=== PATIENT | male | born 1990 | race Caucasian/White ===

== ENCOUNTER 2017-04-22 23:39 | Inpatient (IN) | payer OTHER ==
[~2017-04-22] VITALS: Ht 175.3 cm; Wt 58.3 kg
[2017-04-22 23:44] VITALS: BP 136/89; PULSE 111; RESP 22; TEMP 97.8; O2SAT 98
[2017-04-22] MEDS ORDERED: SODIUM CHLOR 0.9% 1000 ML INJ 1,000 ML IV ONE (23:55)
[2017-04-22] MEDS ORDERED: HUMALOG SQ (23:57)
[2017-04-22] MEDS ORDERED: LEVEMIR SQ (23:57)
[2017-04-22] MEDS ORDERED: OMEP20TA93 PO (23:57)
[2017-04-23] VITALS (30 sets, daily range): BP systolic 87–127; BP diastolic 50–80; PULSE 95–124; RESP 0–31; TEMP 97.9–99.1; O2SAT 96–100
[2017-04-23] MEDS ORDERED: SODIUM CHLORIDE 0.9% FLUSH 10 ML FLUSH IVF PRN
[2017-04-23 00:08] LABS: BLOOD GAS VENOUS BASE EXCESS -16.5 mmol/L (-2-2); BLOOD GAS VENOUS HCO3 10 mmol/L (22-26); BLOOD GAS VENOUS O2 HGB SAT 80 % (70-76); BLOOD GAS VENOUS PCO2 27 mmHg (44-48); BLOOD GAS VENOUS PO2 52 mmHg (35-40); CRITICAL VALUE YES; TEMP CORR TO 98.6
[2017-04-23 00:09] LABS: FIO2 21 %; OXYGEN DEVICE ROOM AIR; STAT YES
[2017-04-23] MEDS ORDERED: ONDANSETRON HCL 4 MG/2 ML VIAL IV ONE (00:15)
[2017-04-23] MEDS ORDERED: SODIUM CHLOR 0.9% 1000 ML INJ 1,000 ML IV ONE (00:25)
--- NOTE | 2017-04-23 00:25 | PD ---
HPI Chief Complaint: Diabetic Time Seen by Provider: 23:48 Travel History International Travel<30 days: No Contact w/Intl Traveler<30days: No Traveled to known affect area: No History of Present Illness HPI 27-year-old male with type 1 diabetes presents to the emergency room complaining of nausea vomiting shortness of breath and high blood sugar. He takes Humalog and Levemir. He states he was feeling well until tonight. He started getting sick with nausea vomiting, as well as feeling some shortness of breath. No fevers or chills or chest or abdominal pain. No chest pain. He's been in DKA in the past. Been taking all of his medications regularly. History Past Medical History Narrative Medical Type 1 diabetes Social History Alcohol Use: No Tobacco Use: No Allergies-Medications (Allergen,Severity, Reaction): Coded Allergies: Penicillins (Verified Allergy, Unknown, 04/22/17) Reported Meds & Prescriptions Reported Meds & Active Scripts Active Reported Omeprazole 20 Mg Tab 20 Mg PO DAILY Humalog Inj (Insulin Human Lispro) 1,000 Unit/10 Ml Vial 2-12 Units SQ TIDAC Levemir Inj (Insulin Detemir) 1,000 unit/ 10 ML Vial 40 Units SQ HS Do not mix with any other Insulin. Review of Systems Except as stated in HPI: all other systems reviewed are Neg Physical Exam Narrative GENERAL: 27-year-old man, ill-appearing, retching, clammy. SKIN:: Clammy. HEAD: Atraumatic. Normocephalic. EYES: Pupils equal and round. No scleral icterus. No injection or drainage. ENT: No nasal bleeding or discharge. Mucous membranes pink and moist. NECK: Trachea midline. No JVD. CARDIOVASCULAR heart rates over rapid. No murmurs. RESPIRATORY: Moderate tachypnea with some deep Kussmaul breathing. GASTROINTESTINAL: Abdomen soft, non-tender, nondistended. Hepatic and splenic margins not palpable. MUSCULOSKELETAL: No obvious deformities. No edema. Decreased muscle bulk. NEURO: A little bit listless. Data Data Last Documented VS Vital Signs Date Time Temp Pulse Resp B/P (MAP) Pulse Ox O2 Delivery O2 Flow Rate FiO2 04/23/17 02:00 109 16 127/80 (96) 96 Room Air 04/22/17 23:44 97.8 Orders Orders Complete Blood Count With Diff (04/22/17:) Comprehensive Metabolic Panel (04/22/17:) Magnesium (Mg) (04/22/17:) Phosphorus (Po4) (04/22/17) Beta Hydroxybutyrate (Acetone) (04/22/17) Lactic Acid (04/22/17) Urinalysis - C+S If Indicated (04/22/17) Blood Gas Venous (Vbg) (04/22/17) Blood Glucose (04/22/17) Blood Glucose (04/23/17:55) Ecg Monitoring (04/22/17:) Iv Access Insert/Monitor (04/22/17) Oximetry (04/22/17) NPO (04/22/17:55) Sodium Chlor 0.9% 1000 Ml Inj (Ns 1000 M (04/22/17:55) Sodium Chlor 0.9% 1000 Ml Inj (Ns 1000 M (04/23/17 00:25) Sodium Chloride 0.9% Flush (Ns Flush) (04/23/17 00:00) Lipase (04/22/17:55) Ondansetron Inj (Zofran Inj) (04/23/17 00:15) Flight Engineer Instructor / Telemetry [id number] (04/23/17:23) ^ Insert Iv (04/23/17:23) Diet Npo (04/23/17 Breakfast) Sodium Chlor 0.9% 1000 Ml Inj (Ns 1000 M (04/23/17:23) Dext 5%-Nacl 0.9% 1000 Ml Inj (D5w-Ns 10 (04/23/17:23) Insulin Human Regular Inj (Novolin R Inj (04/23/17 01:30) Insulin Regular (Iv Infusion) (Novolin R (04/23/17:30) Potassium Chlor 40 Meq Premix (Kcl 40 Me (04/23/17 01:30) Potassium Chlor 40 Meq Premix (Kcl 40 Me (04/23/17 01:30) Potassium Chlor 20 Meq Premix (Kcl 20 Me (04/23/17:30) Potassium Chlor 20 Meq Premix (Kcl 20 Me (11/12/17 01:30) Potassium Chlor 20 Meq Premix (Kcl 20 Me (04/23/17 01:30) Potassium Chlor 20 Meq Premix (Kcl 20 Me (04/23/17 01:30) Potassium Chlor 20 Meq Premix (Kcl 20 Me (04/23/17 01:30) Potassium Chlor 20 Meq Premix (Kcl 20 Me (04/23/17 01:30) Sodium Bicarbonate 8.4% Inj (Sodium Bica (04/23/17:30) Sodium Bicarbonate 8.4% Inj (Sodium Bica (04/23/17 01:30) Sodium Phosphate Inj (Sodium Phosphate I (04/23/17 01:30) Hemoglobin (Hgb) A1c (04/23/17 01:23) Basic Metabolic Panel (Bmp) (04/23/17 06:23) Basic Metabolic Panel (Bmp) (04/23/17 12:23) Basic Metabolic Panel (Bmp) (04/23/17 18:23) Basic Metabolic Panel (Bmp) (04/24/17 00:23) Magnesium (Mg) (04/23/17 06:23) Magnesium (Mg) (04/23/17 12:23) Magnesium (Mg) (04/23/17 18:23) Magnesium (Mg) (04/24/17 00:23) Phosphorus (Po4) (04/23/17 06:23) Phosphorus (Po4) (04/23/17 12:23) Phosphorus (Po4) (04/23/17 18:23) Phosphorus (Po4) (04/24/17 00:23) Beta Hydroxybutyrate (Acetone) (04/23/17 12:23) Beta Hydroxybutyrate (Acetone) (04/24/17 00:23) Admit Order (Ed Use Only) (04/23/17 ) Labs Laboratory Tests Test 04/22/17 23:54 04/22/17 23:59 04/23/17 00:27 Blood Gas Puncture Site Blood Gas Patient Temperature 98.6 Venous Blood pH 7.20 Venous Blood Partial Pressure CO2 27 mmHg Venous Blood Partial Pressure O2 52 mmHg Venous Blood HCO3 10 mmol/L Venous Blood Oxygen Saturation 80 % Venous Blood Oxygen Content 17.0 Vol % Venous Blood Base Excess -16.5 mmol/L Oxygen Delivery Device ROOM AIR Blood Gas Inspired Oxygen 21 % White Blood Count 9.7 TH/MM3 Red Blood Count 5.02 MIL/MM3 Hemoglobin 14.9 GM/DL Hematocrit 45.3 % Mean Corpuscular Volume 90.4 FL Mean Corpuscular Hemoglobin 29.7 PG Mean Corpuscular Hemoglobin Concent 32.8 % Red Cell Distribution Width 11.8 % Platelet Count 267 TH/MM3 Mean Platelet Volume 9.9 FL Neutrophils (%) (Auto) 65.4 % Lymphocytes (%) (Auto) 27.0 % Monocytes (%) (Auto) 5.8 % Eosinophils (%) (Auto) 1.3 % Basophils (%) (Auto) 0.5 % Neutrophils # (Auto) 6.3 TH/MM3 Lymphocytes # (Auto) 2.6 TH/MM3 Monocytes # (Auto) 0.6 TH/MM3 Eosinophils # (Auto) 0.1 TH/MM3 Basophils # (Auto) 0.1 TH/MM3 CBC Comment DIFF FINAL Differential Comment Blood Urea Nitrogen 17 MG/DL Creatinine 0.97 MG/DL Random Glucose 484 MG/DL Total Protein 7.9 GM/DL Albumin 4.3 GM/DL Calcium Level 9.0 MG/DL Phosphorus Level 3.7 MG/DL Magnesium Level 1.9 MG/DL Alkaline Phosphatase 111 U/L Aspartate Amino Transf (AST/SGOT) 28 U/L Alanine Aminotransferase (ALT/SGPT) 27 U/L Total Bilirubin 0.6 MG/DL Sodium Level 133 MEQ/L Potassium Level 4.4 MEQ/L Chloride Level 99 MEQ/L Carbon Dioxide Level 12.4 MEQ/L Anion Gap 22 MEQ/L Estimat Glomerular Filtration Rate 92 ML/MIN Lactic Acid Level 2.4 mmol/L Lipase 69 U/L B-Hydroxybutyrate 7.61 MMOL/L Urine Color COLORLESS Urine Turbidity CLEAR Urine pH 5.0 Urine Specific [place] 1.023 Urine Protein NEG mg/dL Urine Glucose (UA) 1000 mg/dL Urine Ketones 150 mg/dL Urine Occult Blood NEG Urine Nitrite NEG Urine Bilirubin NEG Urine Urobilinogen LESS THAN 2.0 MG/DL Urine Leukocyte Esterase NEG Urine Mucus FEW /lpf Microscopic Urinalysis Comment CULT NOT INDICATED MDM Medical Decision Making Medical Screen Exam Complete: Yes Emergency Medical Condition: Yes Interpretation(s) My review of ABG: PH 7.2/26.6/51.8/10, base excess -16.5 LABS: CBC is unremarkable. CMP with hyperglycemia elevated anion gap acidosis Beta hydroxybutyrate 7.61 UA unremarkable Differential Diagnosis DKA, infection, dehydration, other Narrative Course Medical decision making INITIAL calls a 27-year-old man who presents emergency Department with nausea vomiting and elevated blood sugar. He appears to be in DKA clinically. IV fluid hydration was initiated. ABG confirms large base deficit with acidosis just above DKA. We'll check labs, likely admission to ICU. Critical Care Narrative Aggregate critical care time was 35 minutes. Time to perform other separately billable procedures was not included in the critical care time. My time did not include minutes spent treating any other patients simultaneously or on activities that did not directly contribute to the patient's treatment. The services I provided to this patient were to treat and/or prevent clinically significant deterioration that could result in: Untreated DKA, respiratory failure, other I provided critical care services requiring my management, as noted below: Chart data review, documentation time, medication orders and management, vital sign assessments/reviewing monitor data, ordering and reviewing lab tests, ordering and interpreting/reviewing x-rays and diagnostic studies, care of the patient and discussion of the patient with the admitting physicians. Diagnosis Primary Impression: DKA (diabetic ketoacidoses) Admitting Information Admitting Physician Requests: it Reid Seo MD Apr 23, 2017 00:25
[2017-04-23 00:53] LABS: AUTOMATED NEUTROPHIL # 6.3 TH/MM3 (1.8-7.7); BASOPHIL # 0.1 TH/MM3 (0-0.2); BASOPHIL % 0.5 % (0.0-2.0); EOSINOPHIL # 0.1 TH/MM3 (0-0.4); EOSINOPHIL % 1.3 % (0.0-4.0); HEMATOCRIT 45.3 % (39.0-51.0); HEMO FLAGS DIFF FINAL; LYMPHOCYTE # 2.6 TH/MM3 (1.0-4.8); MEAN CELL VOLUME 90.4 FL (80.0-100.0); MEAN CORPUSCULAR HEMOGLOBIN 29.7 PG (27.0-34.0); MEAN CORPUSCULAR HGB CONC 32.8 % (32.0-36.0); MONO % 5.8 % (0.0-8.0); NEUT % 65.4 % (16.0-70.0); PLATELET COUNT 267 TH/MM3 (150-450); RED BLOOD COUNT 5.02 MIL/MM3 (4.50-5.90); RED CELL DISTRIBUTION WIDTH 11.8 % (11.6-17.2); WHITE BLOOD COUNT 9.7 TH/MM3 (4.0-11.0)
[2017-04-23 01:04] LABS: BLOOD, URINE NEG (NEG); COMMENT (UR) CULT NOT INDICATED; CULTURE IF INDICATED CULT NOT INDICATED; GLUCOSE,URINE 1000 mg/dL (NEG); KETONE, URINE 150 mg/dL (NEG); MUCUS URINE FEW /lpf (OCC); NITRITE,URINE NEG (NEG); URINE COLOR COLORLESS (YELLW/STRAW)
[2017-04-23 01:18] LABS: ALKALINE PHOSPHATASE 111 U/L (45-117); ALT (GPT) 27 U/L (12-78); ANION GAP 22 MEQ/L (5-15); AST (GOT) 28 U/L (15-37); BETA-HYDROXYBUTYRATE 7.61 MMOL/L (0.00-0.39); BICARBONATE 12.4 MEQ/L (21.0-32.0); BLOOD UREA NITROGEN 17 MG/DL (7-18); CHLORIDE 99 MEQ/L (98-107); GLOMERULAR FILTRATION RATE 92 ML/MIN (>89); MAGNESIUM 1.9 MG/DL (1.5-2.5); POTASSIUM 4.4 MEQ/L (3.5-5.1); SODIUM (NA) 133 MEQ/L (136-145); TOTAL BILIRUBIN ADULT 0.6 MG/DL (0.2-1.0)
[2017-04-23] MEDS ORDERED: INSULIN REGULAR (IV INFUSION) 100 UNITS in SODIUM CHLORIDE 0.9% INJ 99 ML IV PRN ×2 (01:30→09:00)
[2017-04-23] MEDS ORDERED: SODIUM PHOSPHATE INJ 15 MMOL in SODIUM CHLORIDE 0.9% INJ 100 ML IV PRN (01:30)
[2017-04-23] MEDS ORDERED: SODIUM BICARBONATE 8.4% SOLN 50 MEQ/50 ML VIAL IV PUSH PRN ×2 (01:30)
[2017-04-23] MEDS ORDERED: POTASSIUM CHLOR 40 MEQ PREMIX 100 ML IV PRN ×2 (01:30)
[2017-04-23] MEDS ORDERED: INSULIN HUMAN REGULAR 1,000 UNITS/10 ML VIAL IV PUSH ONE (01:30)
[2017-04-23] MEDS ORDERED: POTASSIUM CHLOR 20 MEQ PREMIX 100 ML IV PRN ×6 (01:30)
[2017-04-23] MEDS: SODIUM CHLOR 0.9% 1000 ML INJ 1,000 ML IV SCH ×2 (02:08→05:23)
[2017-04-23] MEDS ORDERED: RESP: ALBUTEROL 2.5 MG/IPRATROPIUM 0.5 MG NEB (PRN) INH (02:15)
[2017-04-23] MEDS ORDERED: CHLORHEXIDINE GLUCONATE 2 % 1 PACK (2 CLOTHS) TOP PRN (02:15)
[2017-04-23] MEDS ORDERED: MISCELLANEOUS NURSING INFORMATION XX SCH (02:15)
[2017-04-23] MEDS ORDERED: MAGNESIUM HYDROXIDE SUSP 30 ML CUP PO PRN (02:15)
[2017-04-23] MEDS ORDERED: SENNOSIDES 8.6 MG TAB PO PRN (02:15)
[2017-04-23] MEDS ORDERED: ACETAMINOPHEN 325 MG TAB PO PRN (02:15)
[2017-04-23] MEDS ORDERED: LACTULOSE SYRUP 20 GM/30 ML CUP PO PRN (02:15)
[2017-04-23] MEDS ORDERED: SODIUM CHLORIDE 0.9% FLUSH 10 ML FLUSH IV FLUSH PRN (02:15)
[2017-04-23] MEDS ORDERED: METOCLOPRAMIDE HCL 10 MG/2 ML VIAL IV PUSH PRN (02:15)
[2017-04-23] MEDS ORDERED: BISACODYL 10 MG SUPP RECTAL PRN (02:15)
--- NOTE | 2017-04-23 02:25 | HHI.HP ---
HPI Service Critical Care Medicine Primary Care Physician Loy Coy MD Admission Diagnosis DKA Diagnosis: Travel History International Travel<30 Days: No Contact w/Intl Traveler <30 Da: No Traveled to Known Affected Are: No History of Present Illness 27-year-old male with a medical history she came in for type 1 diabetes mellitus who presented to the ER with nausea vomiting which started on 04/22 around 10 AM. Patient was also started to get a little short of breath but time he arrived to the ER. He was noted to be in diabetic ketoacidosis with hyperglycemia and increase in anion gap with metabolic acidosis. Patient received 2 L normal saline bolus and is being initiated on insulin drip. He was accepted for remission by critical care medicine service. When I evaluated the patient in the ER he was laying in the stretcher feeling nauseous however not in any acute distress. He denied any fevers or chills denied any abdominal pain denied any diarrhea. He does take Humalog and Levemir at home. He tells me that his blood sugars fluctuated a lot. His last episode of DKA was a few years ago. History (Limited) History Past Medical History Narrative Medical Type 1 diabetes Social History Alcohol Use: No Tobacco Use: No Allergies-Medications Allergies-Medications (Allergen,Severity, Reaction): Coded Allergies: Penicillins (Verified Allergy, Unknown, 04/22/17) Reported Meds & Prescriptions Reported Meds & Active Scripts Active Reported Omeprazole 20 Mg Tab 20 Mg PO DAILY Humalog Inj (Insulin Human Lispro) 1,000 Unit/10 Ml Vial 2-12 Units SQ TIDAC Levemir Inj (Insulin Detemir) 1,000 unit/ 10 ML Vial 40 Units SQ HS Do not mix with any other Insulin. ROS Review of Systems Except as stated in HPI: all other systems reviewed are Neg Physical Exam Vital Signs Vital Signs Date Time Temp Pulse Resp B/P (MAP) Pulse Ox O2 Delivery O2 Flow Rate FiO2 04/23/17 01:00 120 18 120/68 (85) 98 Room Air 04/23/17 00:06 22 96 Room Air 04/22/17 23:44 97.8 111 22 136/89 (105) 98 Physical Exam Narrative GENERAL: 27-year-old man, laying in ER stretcher slightly nauseous however not in any acute distress SKIN:: Warm and dry HEAD: Atraumatic. Normocephalic. EYES: Pupils equal and round. No scleral icterus. No injection or drainage. ENT: No nasal bleeding or discharge. Mucous membranes pink and moist. NECK: Trachea midline. No JVD. CARDIOVASCULAR heart rates over rapid. No murmurs. RESPIRATORY: Good air entry bilaterally no wheezing or crackles GASTROINTESTINAL: Abdomen soft, non-tender, nondistended. Hepatic and splenic margins not palpable. MUSCULOSKELETAL: No obvious deformities. No edema. Decreased muscle bulk. NEURO: Awake alert oriented 3, nonfocal grossly. Moving all 4 extremities. Laboratory Laboratory Tests Test 04/22/17 23:54 04/22/17 23:59 04/23/17 00:27 Blood Gas Puncture Site Blood Gas Patient Temperature 98.6 Venous Blood pH 7.20 Venous Blood Partial Pressure CO2 27 Venous Blood Partial Pressure O2 52 Venous Blood HCO3 10 Venous Blood Oxygen Saturation 80 Venous Blood Oxygen Content 17.0 Venous Blood Base Excess -16.5 Oxygen Delivery Device ROOM AIR Blood Gas Inspired Oxygen 21 White Blood Count 9.7 Red Blood Count 5.02 Hemoglobin 14.9 Hematocrit 45.3 Mean Corpuscular Volume 90.4 Mean Corpuscular Hemoglobin 29.7 Mean Corpuscular Hemoglobin Concent 32.8 Red Cell Distribution Width 11.8 Platelet Count 267 Mean Platelet Volume 9.9 Neutrophils (%) (Auto) 65.4 Lymphocytes (%) (Auto) 27.0 Monocytes (%) (Auto) 5.8 Eosinophils (%) (Auto) 1.3 Basophils (%) (Auto) 0.5 Neutrophils # (Auto) 6.3 Lymphocytes # (Auto) 2.6 Monocytes # (Auto) 0.6 Eosinophils # (Auto) 0.1 Basophils # (Auto) 0.1 CBC Comment DIFF FINAL Differential Comment Blood Urea Nitrogen 17 Creatinine 0.97 Random Glucose 484 Total Protein 7.9 Albumin 4.3 Calcium Level 9.0 Phosphorus Level 3.7 Magnesium Level 1.9 Alkaline Phosphatase 111 Aspartate Amino Transf (AST/SGOT) 28 Alanine Aminotransferase (ALT/SGPT) 27 Total Bilirubin 0.6 Sodium Level 133 Potassium Level 4.4 Chloride Level 99 Carbon Dioxide Level 12.4 Anion Gap 22 Estimat Glomerular Filtration Rate 92 Lactic Acid Level 2.4 Lipase 69 B-Hydroxybutyrate 7.61 Urine Color COLORLESS Urine Turbidity CLEAR Urine pH 5.0 Urine Specific [place] 1.023 Urine Protein NEG Urine Glucose (UA) 1000 Urine Ketones 150 Urine Occult Blood NEG Urine Nitrite NEG Urine Bilirubin NEG Urine Urobilinogen LESS THAN 2.0 Urine Leukocyte Esterase NEG Urine Mucus FEW Microscopic Urinalysis Comment CULT NOT INDICATED Result Diagram: 04/22/17235804/22/172358 Caprinmaritza VTE Risk Assessment Caprini VTE Risk Assessment: No/Low Risk (score <= 1) Caprini Risk Assessment Model Point Value = 1 Point Value = 2 Point Value = 3 Point Value = 5 Age 41-60 Minor surgery BMI > 25 kg/m2 Swollen legs Varicose veins or History of unexplained or recurrent spontaneous Oral contraceptives or hormone replacement Sepsis (< 1 month) Serious lung disease, including pneumonia (< 1 month) Abnormal pulmonary function Acute myocardial infarction Congestive heart failure (< 1 month) History of inflammatory bowel disease Medical patient at bed rest Age 61-74 Arthroscopic surgery Major open surgery (> 45 min) Laparoscopic surgery (> 45 min) Malignancy Confined to bed (> 72 hours) Immobilizing plaster cast Central venous access Age >= 75 History of VTE Family history of VTE Factor V Leiden Prothrombin [id number] Lupus anticoagulant Anticardiolipin antibodies Elevated serum homocysteine Heparin-induced thrombocytopenia Other congenital or acquired thrombophilia Stroke (< 1 month) Elective arthroplasty Hip, pelvis, or leg fracture Acute spinal cord injury (< 1 month) Prophylaxis Regimen Total Risk Factor Score Risk Level Prophylaxis Regimen 0-1 Low Early ambulation 2 Moderate Order ONE of the following: *Sequential Compression Device (SCD) *Heparin 5000 units SQ BID 3-4 Higher Order ONE of the following medications: *Heparin 5000 units SQ TID *Enoxaparin/Lovenox 40 mg SQ daily (WT < 150 kg, CrCl > 30 mL/min) *Enoxaparin/Lovenox 30 mg SQ daily (WT < 150 kg, CrCl > 10-29 mL/min) *Enoxaparin/Lovenox 30 mg SQ BID (WT < 150 kg, CrCl > 30 mL/min) AND/OR *Sequential Compression Device (SCD) 5 or more Highest Order ONE of the following medications: *Heparin 5000 units SQ TID (Preferred with Epidurals) *Enoxaparin/Lovenox 40 mg SQ daily (WT < 150 kg, CrCl > 30 mL/min) *Enoxaparin/Lovenox 30 mg SQ daily (WT < 150 kg, CrCl > 10-29 mL/min) *Enoxaparin/Lovenox 30 mg SQ BID (WT < 150 kg, CrCl > 30 mL/min) AND *Sequential Compression Device (SCD) Assessment and Plan Assessment and Plan 27-year-old male with: Diabetic ketoacidosis Uncontrolled diabetes mellitus Dehydration Plan: Neuro: Follow neuro status. Tylenol when necessary for pain. Cardiovascular: IV hydration, watch for hypotension. Pulmonary: Supplemental O2 as needed. Bronchodilators when necessary. GI/liver: Nothing by mouth for now. Zofran when necessary for nausea vomiting. Renal/ IV hydration, strict intake output, monitor and replete electrolytes, follow BUN/creatinine. ID: No antibiotics at this time. Heme: Follow CBC Endocrine: Started on insulin drip per DKA protocol. Follow serial labs per protocol. Prophylaxis: Pepcid/SCDs/ Lovenox Condition critical Time spent on critical care excluding procedures 40 minutes Markie Cummins MD Apr 23, 2017 02:25
[2017-04-23] MEDS: CHLORHEXIDINE GLUCONATE 2 % 1 PACK (2 CLOTHS) TOP SCH (04:00)
[2017-04-23] MEDS: DEXT 5%-NACL 0.9% 1000 ML INJ 1,000 ML IV SCH ×2 (04:44→06:23)
[2017-04-23] MEDS: ONDANSETRON HCL 4 MG/2 ML VIAL IV PUSH PRN (05:27)
[2017-04-23] MEDS: ENOXAPARIN SODIUM 40 MG/0.4 ML SYRINGE SQ SCH (06:23)
[2017-04-23 07:26] LABS: BICARBONATE 15.3 MEQ/L (21.0-32.0); MAGNESIUM 1.9 MG/DL (1.5-2.5); POTASSIUM 4.4 MEQ/L (3.5-5.1)
[2017-04-23] MEDS ORDERED: GLUCAGON 1 MG/ML VIAL OTHER PRN (08:45)
[2017-04-23] MEDS ORDERED: DC Insulin drip 2 hrs post basal insulin dose ONE (08:45)
[2017-04-23] MEDS ORDERED: DC previous DKA orders (HMC 1917) ONE (08:45)
[2017-04-23] MEDS ORDERED: DEXTROSE 50% IN WATER 50 ML VIAL(D50) IV PUSH PRN (08:45)
[2017-04-23] MEDS: INSULIN DETEMIR 100 UNITS/ML VIAL SQ SCH ×2 (09:32→19:58)
[2017-04-23] MEDS: FAMOTIDINE 20 MG/2 ML VIAL IV PUSH SCH ×2 (09:32→19:57)
[2017-04-23] MEDS: SODIUM CHLORIDE 0.9% FLUSH 10 ML FLUSH IV FLUSH SCH ×2 (09:32→19:58)
[2017-04-23] MEDS ORDERED: INSULIN ASPART SUPPLEMENTAL SCALE SQ SCH (12:00)
[2017-04-23] MEDS: INSULIN ASPART SUPPLEMENTAL SCALE SQ SCH ×3 (12:00→21:00)
[2017-04-23] MEDS: INSULIN ASPART 1,000 UNITS/10 ML VIAL SQ SCH ×2 (12:05→18:00)
[2017-04-23 12:37] LABS: ANION GAP 10 MEQ/L (5-15); BETA-HYDROXYBUTYRATE 3.07 MMOL/L (0.00-0.39); BICARBONATE 19.2 MEQ/L (21.0-32.0); BLOOD UREA NITROGEN 8 MG/DL (7-18); CHLORIDE 113 MEQ/L (98-107); GLOMERULAR FILTRATION RATE 110 ML/MIN (>89); MAGNESIUM 2.1 MG/DL (1.5-2.5); POTASSIUM 4.1 MEQ/L (3.5-5.1); SODIUM (NA) 142 MEQ/L (136-145)
[2017-04-23] MEDS: DOCUSATE SODIUM 50 MG/SENNA 8.6 MG TAB PO SCH (19:57)
[2017-04-23 21:25] LABS: BICARBONATE 21.7 MEQ/L (21.0-32.0); MAGNESIUM 1.9 MG/DL (1.5-2.5); POTASSIUM 3.3 MEQ/L (3.5-5.1)
[2017-04-24] VITALS: BP 104/64; PULSE 108; RESP 20; TEMP 99.1; O2SAT 96
[2017-04-24] MEDS: CHLORHEXIDINE GLUCONATE 2 % 1 PACK (2 CLOTHS) TOP SCH (04:00)
[2017-04-24] MEDS: ENOXAPARIN SODIUM 40 MG/0.4 ML SYRINGE SQ SCH (05:23)
[2017-04-24] MEDS ORDERED: POTASSIUM CHLORIDE 10 MEQ CONTROLLED RELEASE TAB PO ONE (07:45)
[2017-04-24 08:00] VITALS: BP 121/75; PULSE 101; RESP 18; TEMP 96.2; O2SAT 87
--- NOTE | 2017-04-24 08:36 | HHI.PR ---
Subjective Remarks Follow-up diabetes. Patient states that he feels much better today. He does have some mild nausea, which he attributes to a sinus headache. No vomiting this morning. No cough, dyspnea, diarrhea, constipation, dysuria. He wants to go home today. Objective Vitals Vital Signs Date Time Temp Pulse Resp B/P (MAP) Pulse Ox O2 Delivery O2 Flow Rate FiO2 04/24/17 00:00 99.1 108 20 104/64 (77) 96 04/23/17 22:20 99.1 107 20 117/64 (81) 96 04/23/17 22:00 103 04/23/17 20:25 99 21 04/23/17 20:00 106 04/23/17 18:00 108 04/23/17 17:00 102 11 96/54 (68) 99 04/23/17 16:03 98.1 96 20 102/65 (77) 100 04/23/17 16:00 98.1 96 16 100 04/23/17 16:00 96 04/23/17 15:30 95 17 110/68 (82) 100 04/23/17 15:00 96 15 92/51 (65) 100 04/23/17 14:30 96 19 103/65 (78) 100 04/23/17 14:00 99 04/23/17 14:00 99 23 98/67 (77) 100 04/23/17 13:30 99 23 91/56 (68) 100 04/23/17 13:00 103 21 90/58 (69) 100 04/23/17 12:00 98.2 109 31 97/60 (72) 100 04/23/17 12:00 109 04/23/17 11:30 108 27 99/55 (70) 99 04/23/17 11:00 102 14 99/58 (72) 97 04/23/17 10:30 113 16 87/50 (62) 97 04/23/17 10:00 102 04/23/17 10:00 105 0 102/52 (69) 99 04/23/17 09:00 102 6 93/56 (68) 99 I/O 04/23/17 04/23/17 04/23/17 04/24/17 04/24/17 04/24/17 07:00 15:00 23:00 07:00 15:00 23:00 Intake Total 3266 ml 878.0 ml 480 ml 240 ml Output Total 2125 ml 1225 ml Balance 1141 ml 878.0 ml -745 ml 240 ml Intake Oral 480 ml 240 ml IV Total 3266 ml 878.0 ml Output Urine Total 2125 ml 1225 ml Stool Total 0 ml # Voids 3 2 # Bowel Movements 0 0 Result Diagram: 04/22/17 2359 04/23/171958 Objective Remarks General: No acute distress. Heart: Regular rate and rhythm. No murmur. Lungs: Clear to auscultation bilaterally. No wheezes, rales, or rhonchi. Breathing is nonlabored. Abdomen: Soft, nontender, nondistended. Extremities: No lower extremity edema. Psych: Alert and oriented. Procedures None Urinary Catheter: No Vascular Central Line Catheter: No A/P Assessment and Plan 1. Type 1 diabetes mellitus with DKA: Glucose much improved. DKA has resolved. Continue Levemir. Monitor Accu-Cheks and cover with sliding scale insulin. Diabetic diet. 2. GI prophylaxis: Famotidine. 3. DVT prophylaxis: Lovenox. 4. Nausea/vomiting: Improved. Discharge Planning Plan for discharge home today pending lab results. Dwight Boone MD Apr 24, 2017 08:36
[2017-04-24] MEDS ORDERED: LEVEMIR SQ (08:39)
--- NOTE | 2017-04-24 08:41 | HHI.DCPOC ---
Discharge Care Plan Diagnosis: (1) Type 1 diabetes mellitus (2) DKA (diabetic ketoacidoses) (3) Hypokalemia Goals to Promote Your Health * To prevent worsening of your condition and complications * To maintain your health at the optimal level Directions to Meet Your Goals Take your medications as prescribed Follow your dietary instruction Follow activity as directed Keep your appointments as scheduled Take your immunizations and boosters as scheduled If your symptoms worsen call your PCP, if no PCP go to Urgent Care Center or Emergency Room Smoking is Dangerous to Your Health. Avoid second hand smoke Call the 24-hour hour crisis hotline for domestic abuse at Dwight Boone MD Apr 24, 2017 08:41
[2017-04-24] MEDS: DOCUSATE SODIUM 50 MG/SENNA 8.6 MG TAB PO SCH (09:00)
[2017-04-24] MEDS: INSULIN DETEMIR 100 UNITS/ML VIAL SQ SCH (09:16)
[2017-04-24] MEDS: INSULIN ASPART SUPPLEMENTAL SCALE SQ SCH ×2 (09:17→12:00)
[2017-04-24] MEDS: SODIUM CHLORIDE 0.9% FLUSH 10 ML FLUSH IV FLUSH SCH (09:17)
[2017-04-24] MEDS: INSULIN ASPART 1,000 UNITS/10 ML VIAL SQ SCH ×2 (09:17→13:16)
[2017-04-24] MEDS: FAMOTIDINE 20 MG/2 ML VIAL IV PUSH SCH (09:18)
[2017-04-24] MEDS: ONDANSETRON HCL 4 MG/2 ML VIAL IV PUSH PRN (09:22)
[2017-04-24 10:08] LABS: BICARBONATE 23.9 MEQ/L (21.0-32.0); POTASSIUM 3.8 MEQ/L (3.5-5.1)
[2017-04-24 12:00] VITALS: BP 119/75; PULSE 103; RESP 17; TEMP 97.3; O2SAT 97
[2017-04-24] MEDS ORDERED: LORATADINE 10 MG TAB PO ONE (13:15)
[2017-04-24] MEDS ORDERED: FLUTICASONE PROPIONATE 50 MCG/ACT 16 GM NASAL SPRAY EACH NARE SCH (14:00)
[2017-04-24 16:29] LABS: HEMOGLOBIN A1a 1.1 %; HEMOGLOBIN A1b 1.3 %; HEMOGLOBIN Ao 76.1 %; HEMOGLOBIN F 1.6 %; HEMOGLOBIN LA1C 1.9 %
== END 2017-04-24 15:32 | disposition home or self-care (01) | DRG 639 ==
LOC: NEPE 23:39 → NEDA 04-23 02:02 → HIMN 04-23 03:16 → N07A 04-23 22:10
PROVIDERS: ADMIT Family Medicine; ATTEND Family Medicine
DX: E10.10 Type 1 diabetes mellitus with ketoacidosis without coma (principal); E86.0 Dehydration; Z79.4 Long term (current) use of insulin; E87.6 Hypokalemia
CPT/HCPCS: 80048; 80053; 81001; 82010; 82805; 82948; 83036; 83605; 83690; 83735; 84100; 85025; 87641; 96361; 96374; J1650; J1815; J1817; J2405; J2765; J3480; J7030; J7042